=== PATIENT | male | born 1940 | race Caucasian/White ===

== ENCOUNTER 2017-10-09 01:06 | Inpatient (IN) | payer MEDICARE, MEDICAID ==
[~2017-10-09] VITALS: Ht 162.6 cm; Wt 62.5 kg
[2017-10-09] MEDS ORDERED: 0.9% SODIUM CHLORIDE 10 ML SYRINGE IVP PRN (01:15)
[2017-10-09] MEDS ORDERED: SODIUM CHLORIDE 0.9% 1,000 ML IV ONE (01:15)
[2017-10-09] MEDS ORDERED: ASPI81 PO (01:25)
[2017-10-09] MEDS ORDERED: VANC125C5 PO (01:25)
[2017-10-09] MEDS ORDERED: LOSA25TA21 PO (01:25)
[2017-10-09] MEDS ORDERED: MORP5SYR PO (01:25)
[2017-10-09] MEDS ORDERED: DSS100 PO (01:25)
[2017-10-09] MEDS ORDERED: HYDR25TA84 PO (01:25)
[2017-10-09] MEDS ORDERED: FOLI0.8T43 PO (01:25)
[2017-10-09] MEDS ORDERED: PANT40TA25 PO (01:25)
[2017-10-09] MEDS ORDERED: IPRA3AMP4 IH (01:25)
[2017-10-09] MEDS ORDERED: FLUO-191 PO (01:25)
[2017-10-09] MEDS ORDERED: ATOR10TA84 PO (01:25)
[2017-10-09] MEDS ORDERED: SIME80 PO (01:25)
[2017-10-09] MEDS ORDERED: CARV6 PO (01:25)
[2017-10-09] MEDS ORDERED: TRAZ-144 PO (01:25)
[2017-10-09] MEDS ORDERED: INSLAN SQ (01:25)
[2017-10-09] MEDS ORDERED: RANO500T3 PO (01:25)
[2017-10-09 01:47] LABS: BASOPHILS % (AUTO) 0.4 % (0.0-2.0); EOSINOPHILS % (AUTO) 1.5 % (1.0-6.0); HEMATOCRIT 31.6 % (41-53); HEMOGLOBIN 10.6 g/dL (13.5-17.5); LYMPHOCYTES # (AUTO) 0.4 K/uL (1.0-4.8); LYMPHOCYTES % (AUTO) 3.1 % (22.0-44.0); MEAN CORPUSCULAR HEMOGLOBIN 29.8 pg (26.0-34.0); MEAN CORPUSCULAR HGB CONC 33.6 G/dL (31.0-37.0); MEAN CORPUSCULAR VOLUME 89 fL (80-100); MONOCYTES # (AUTO) 0.7 K/uL (0.1-1.0); MONOCYTES % (AUTO) 5.2 % (2.0-9.0); PLATELET COUNT (AUTO) 159 K/uL (150-450); RED BLOOD CELL COUNT(AUTO) 3.56 MIL/uL (4.50-5.90); RED CELL DISTRIBUTION WIDTH 16.3 % (11.5-14.5)
[2017-10-09 01:50] LABS: NEUTROPHILS % (AUTO) 89.8 % (40.0-70.0)
[2017-10-09 01:56] LABS: CALCIUM, TOTAL 7.5 mg/dL (8.8-10.5); CREATININE 5.06 mg/dL (0.60-1.30); POTASSIUM 5.1 mmol/L (3.5-5.1)
[2017-10-09 02:01] LABS: INR 1.1 (0.9-1.1); PROTHROMBIN TIME 11.7 SEC (9.4-11.6)
[2017-10-09 02:02] LABS: ALBUMIN 1.7 g/dL (3.4-5.0); BILIRUBIN,TOTAL 0.7 mg/dL (0.1-1.0); TOTAL PROTEIN, SERUM 4.8 g/dL (6.4-8.2)
[2017-10-09 02:05] LABS: LACTIC ACID 0.6 mmol/L (0.4-2.0)
[2017-10-09] MEDS ORDERED: ACETAMINOPHEN 325 MG TABLET PO PRN ×2 (04:45→12:15)
[2017-10-09] MEDS ORDERED: ONDANSETRON HCL 4 MG/2 ML VIAL IVP PRN (04:45)
[2017-10-09 05:30] LABS: APPEARANCE,URINE CLOUDY (CLEAR); GLUCOSE, URINE (UA) NEGATIVE (NEGATIVE); OCCULT BLOOD,URINE TRACE (NEGATIVE); PROTEIN,URINE SEE CONFIRM (NEGATIVE)
[2017-10-09 05:31] LABS: BILIRUBIN,URINE PRELIM. POSITIVE (NEGATIVE); KETONES,URINE TRACE mg/dL (NEGATIVE); LEUKOCYTE ESTERASE ,URINE TRACE (NEGATIVE); NITRATE,URINE NEGATIVE (NEGATIVE); UROBILINOGEN,URINE 0.2 mg/dL (<=1.0)
[2017-10-09 05:33] LABS: BACTERIA,URINE Few /HPF (None Seen); SQUAMOUS EPITHELIAL CELL,UR Rare /LPF (None Seen); SULFOSALICYLIC ACID,URINE 1+ (Negative)
[2017-10-09 05:50] LABS: C.DIFF GDH ANTIGEN, Stool Positive (Negative)
[2017-10-09 05:52] LABS: C.DIFF TOXINS A&B, Stool Positive (Negative)
[2017-10-09 06:35] VITALS: BP 109/63
[2017-10-09 07:53] VITALS: BP 123/53
[2017-10-09 11:10] VITALS: BP 97/53
[2017-10-09] MEDS ORDERED: ALBUTEROL SULFATE 2.5 MG/0.5 ML NEB SOLUTION NEB PRN (12:15)
[2017-10-09] MEDS ORDERED: PANT20TA12 PO (12:22)
[2017-10-09] MEDS ORDERED: MORP5L PO (12:22)
[2017-10-09] MEDS ORDERED: SODIUM CHLORIDE 0.9% 50 ML ONE (14:40)
[2017-10-09] MEDS: MetroNIDAZOLE 500 MG/NACL 100 ML IV SCH ×2 (14:50→22:30)
[2017-10-09 15:22] VITALS: BP 98/50
[2017-10-09 19:29] VITALS: BP 103/51
[2017-10-09] MEDS: HEPARIN SODIUM,PORCINE 5,000 UNITS/ML VIAL SQ SCH (20:54)
[2017-10-09] MEDS: DOCUSATE SODIUM 100 MG CAPSULE PO SCH (20:55)
[2017-10-09] MEDS: TraMADol HCL 50 MG TABLET PO PRN (22:30)
[2017-10-09 23:48] VITALS: BP 100/49
[2017-10-10 04:27] VITALS: BP 103/68
[2017-10-10] MEDS ORDERED: SODIUM CHLORIDE 0.9% 2,000 ML IV ONE (07:23)
[2017-10-10] MEDS: MetroNIDAZOLE 500 MG/NACL 100 ML IV SCH ×3 (07:33→21:03)
[2017-10-10 07:43] VITALS: BP_SYST 108; BP_SYST 85; BP_DIAS 54; BP_DIAS 84
[2017-10-10] MEDS: DOCUSATE SODIUM 100 MG CAPSULE PO SCH ×2 (07:47→20:36)
[2017-10-10] MEDS: HEPARIN SODIUM,PORCINE 5,000 UNITS/ML VIAL SQ SCH ×2 (08:12→20:27)
[2017-10-10] MEDS: PANTOPRAZOLE SODIUM 40 MG DR TABLET PO SCH (09:37)
[2017-10-10] MEDS: TraMADol HCL 50 MG TABLET PO PRN (09:37)
[2017-10-10 11:21] VITALS: BP 91/53
[2017-10-10] MEDS ORDERED: DEXTROSE 50%-WATER 25 GM/50 ML SYRINGE IVP PRN (13:30)
[2017-10-10] MEDS ORDERED: MANNITOL 25%-12.5 GM/50 ML VIAL IVP ONE (17:01)
[2017-10-10] MEDS: INSULIN LISPRO 100 UNITS/ML SQ PRN ×2 (17:58→20:34)
[2017-10-10 20:00] VITALS: BP 97/61
[2017-10-10] MEDS ORDERED: SODIUM CHLORIDE 0.9% 250 ML IV ONE (20:21)
[2017-10-11 00:29] VITALS: BP 107/59
[2017-10-11 06:10] VITALS: BP 106/61
[2017-10-11] MEDS: MetroNIDAZOLE 500 MG/NACL 100 ML IV SCH ×3 (06:24→21:08)
[2017-10-11 07:10] LABS: BASOPHILS % (AUTO) 0.3 % (0.0-2.0); EOSINOPHILS % (AUTO) 0.8 % (1.0-6.0); HEMATOCRIT 32.9 % (41-53); HEMOGLOBIN 10.8 g/dL (13.5-17.5); LYMPHOCYTES # (AUTO) 0.6 K/uL (1.0-4.8); LYMPHOCYTES % (AUTO) 4.9 % (22.0-44.0); MEAN CORPUSCULAR HEMOGLOBIN 29.7 pg (26.0-34.0); MEAN CORPUSCULAR HGB CONC 32.9 G/dL (31.0-37.0); MEAN CORPUSCULAR VOLUME 90 fL (80-100); MONOCYTES # (AUTO) 0.6 K/uL (0.1-1.0); NEUTROPHILS # (AUTO) 10.5 K/uL (1.8-7.7); PLATELET COUNT (AUTO) 171 K/uL (150-450); RED BLOOD CELL COUNT(AUTO) 3.65 MIL/uL (4.50-5.90); RED CELL DISTRIBUTION WIDTH 16.4 % (11.5-14.5)
[2017-10-11 07:40] LABS: CALCIUM, TOTAL 7.1 mg/dL (8.8-10.5); CREATININE 4.96 mg/dL (0.60-1.30); POTASSIUM 4.2 mmol/L (3.5-5.1)
[2017-10-11 07:53] VITALS: BP 104/59
[2017-10-11] MEDS: PANTOPRAZOLE SODIUM 40 MG DR TABLET PO SCH (08:43)
[2017-10-11] MEDS: HEPARIN SODIUM,PORCINE 5,000 UNITS/ML VIAL SQ SCH ×2 (08:43→20:11)
[2017-10-11] MEDS: DOCUSATE SODIUM 100 MG CAPSULE PO SCH ×2 (09:00→20:26)
[2017-10-11 11:40] VITALS: BP 112/58
[2017-10-11 15:39] VITALS: BP 119/63
[2017-10-11] MEDS: INSULIN LISPRO 100 UNITS/ML SQ PRN ×2 (17:33→20:18)
[2017-10-11 19:28] VITALS: BP 109/64
[2017-10-12 00:05] VITALS: BP 120/81
[2017-10-12 04:29] VITALS: BP 121/69
[2017-10-12] MEDS: INSULIN LISPRO 100 UNITS/ML SQ PRN ×3 (06:04→21:53)
[2017-10-12] MEDS: MetroNIDAZOLE 500 MG/NACL 100 ML IV SCH (06:46)
[2017-10-12 07:53] VITALS: BP 131/72
[2017-10-12] MEDS: HEPARIN SODIUM,PORCINE 5,000 UNITS/ML VIAL SQ SCH ×2 (08:21→21:54)
[2017-10-12] MEDS: PANTOPRAZOLE SODIUM 40 MG DR TABLET PO SCH (08:21)
[2017-10-12] MEDS: DOCUSATE SODIUM 100 MG CAPSULE PO SCH ×2 (09:00→21:00)
[2017-10-12] MEDS ORDERED: EPOETIN ALFA 10,000 UNITS/ML 2 ML VIAL SQ SCH (09:00)
[2017-10-12] MEDS ORDERED: ALBUMIN HUMAN 25%-25GM/100ML 100 ML IV PRN (09:45)
[2017-10-12 11:34] VITALS: BP 120/65
[2017-10-12] MEDS: VANCOMYCIN HCL 125 MG/2.5 ML SOLUTION ORAL.SYG PO SCH ×3 (13:30→23:31)
[2017-10-12] MEDS ORDERED: VANCOMYCIN HCL 125 MG/2.5 ML SOLUTION ORAL.SYG PO SCH (14:00)
[2017-10-12 16:10] VITALS: BP 120/58
[2017-10-12 17:48] LABS: GLUCOMETER DEV NAME(LOC) 5N 1P; GLUCOSE,POINT OF CARE 272 MG/DL (70-110)
[2017-10-12 17:48] LABS: GLUCOMETER DEV NAME(LOC) 5N 1P; GLUCOSE,POINT OF CARE 180 MG/DL (70-110)
[2017-10-12 17:48] LABS: GLUCOMETER DEV NAME(LOC) 5N 1P; GLUCOSE,POINT OF CARE 295 MG/DL (70-110)
[2017-10-12 17:48] LABS: GLUCOMETER DEV NAME(LOC) 5N 1P; GLUCOSE,POINT OF CARE 160 MG/DL (70-110)
[2017-10-12 17:48] LABS: GLUCOMETER DEV NAME(LOC) 5N 1P; GLUCOSE,POINT OF CARE 144 MG/DL (70-110)
[2017-10-12 17:48] LABS: GLUCOMETER DEV NAME(LOC) 5N 1P; GLUCOSE,POINT OF CARE 161 MG/DL (70-110)
[2017-10-12 17:48] LABS: GLUCOMETER DEV NAME(LOC) 5N 1P; GLUCOSE,POINT OF CARE 64 MG/DL (70-110)
[2017-10-12 17:48] LABS: GLUCOMETER DEV NAME(LOC) 5N 1P; GLUCOSE,POINT OF CARE 195 MG/DL (70-110)
[2017-10-12 17:48] LABS: GLUCOMETER DEV NAME(LOC) 5N 1P; GLUCOSE,POINT OF CARE 172 MG/DL (70-110)
[2017-10-12 19:47] VITALS: BP 122/69
[2017-10-12] MEDS: LACTOBAC ACID/BULG/BIFID/THERM TABLET PO SCH (21:51)
[2017-10-13 00:28] LABS: GLUCOMETER DEV NAME(LOC) 5N 1P; GLUCOSE,POINT OF CARE 202 MG/DL (70-110)
[2017-10-13 00:28] LABS: GLUCOMETER DEV NAME(LOC) 5N 1P; GLUCOSE,POINT OF CARE 155 MG/DL (70-110)
[2017-10-13 00:32] VITALS: BP 117/68
[2017-10-13 05:41] VITALS: BP 119/73
[2017-10-13] MEDS: VANCOMYCIN HCL 125 MG/2.5 ML SOLUTION ORAL.SYG PO SCH ×2 (06:01→13:16)
[2017-10-13 06:02] LABS: BASOPHILS % (AUTO) 0.2 % (0.0-2.0); EOSINOPHILS % (AUTO) 0.4 % (1.0-6.0); HEMATOCRIT 34.9 % (41-53); HEMOGLOBIN 11.6 g/dL (13.5-17.5); LYMPHOCYTES # (AUTO) 0.6 K/uL (1.0-4.8); LYMPHOCYTES % (AUTO) 5.2 % (22.0-44.0); MEAN CORPUSCULAR HEMOGLOBIN 29.9 pg (26.0-34.0); MEAN CORPUSCULAR HGB CONC 33.2 G/dL (31.0-37.0); MEAN CORPUSCULAR VOLUME 90 fL (80-100); MONOCYTES # (AUTO) 0.6 K/uL (0.1-1.0); MONOCYTES % (AUTO) 5.4 % (2.0-9.0); NEUTROPHILS # (AUTO) 10.5 K/uL (1.8-7.7); PLATELET COUNT (AUTO) 186 K/uL (150-450); RED BLOOD CELL COUNT(AUTO) 3.88 MIL/uL (4.50-5.90); RED CELL DISTRIBUTION WIDTH 16.6 % (11.5-14.5)
[2017-10-13 06:20] LABS: CALCIUM, TOTAL 7.3 mg/dL (8.8-10.5); CREATININE 6.03 mg/dL (0.60-1.30); POTASSIUM 3.9 mmol/L (3.5-5.1)
[2017-10-13 06:38] LABS: NEUTROPHILS % (AUTO) 88.8 % (40.0-70.0)
[2017-10-13 07:07] VITALS: BP 126/67
[2017-10-13] MEDS ORDERED: SODIUM CHLORIDE 0.9% 1,000 ML IV ONE (08:25)
[2017-10-13 11:22] VITALS: BP 109/62
[2017-10-13] MEDS ORDERED: HEPA500041 SQ (12:04)
[2017-10-13] MEDS ORDERED: LACT1POW8 MC (12:08)
[2017-10-13] MEDS ORDERED: LACT0.5T PO (12:09)
[2017-10-13] MEDS: HEPARIN SODIUM,PORCINE 5,000 UNITS/ML VIAL SQ SCH (13:16)
[2017-10-13] MEDS: LACTOBAC ACID/BULG/BIFID/THERM TABLET PO SCH (13:16)
[2017-10-13] MEDS: DOCUSATE SODIUM 100 MG CAPSULE PO SCH (13:16)
[2017-10-13] MEDS: PANTOPRAZOLE SODIUM 40 MG DR TABLET PO SCH (13:16)
[2017-10-13] MEDS ORDERED: ACET-2247 PO (13:35)
[2017-10-13] MEDS ORDERED: AUD NEB (13:36)
[2017-10-13] MEDS ORDERED: INSU100V SQ (13:43)
[2017-10-14 00:42] LABS: GLUCOMETER DEV NAME(LOC) 5S 2Q; GLUCOSE,POINT OF CARE 104 MG/DL (70-110)
[2017-10-14 00:42] LABS: GLUCOMETER DEV NAME(LOC) 5S 2Q; GLUCOSE,POINT OF CARE 124 MG/DL (70-110)
== END 2017-10-13 14:25 | DRG 871 ==
LOC: EMS 01:10 → 5S 04:38
PROVIDERS: ADMIT Internal Medicine; ATTEND Internal Medicine
PROC: 5A1D70Z Performance of Urinary Filtration, Intermittent, Less than 6 Hours Per Day (ICD-10-PCS; principal; 2017-10-10)
PROC: 5A1D70Z Performance of Urinary Filtration, Intermittent, Less than 6 Hours Per Day (ICD-10-PCS; 2017-10-13)
DX: A41.4 Sepsis due to anaerobes (principal); N18.6 End stage renal disease; E43 Unspecified severe protein-calorie malnutrition; G93.41 Metabolic encephalopathy; A04.72 Enterocolitis due to Clostridium difficile, not specified as recurrent; R64 Cachexia; N17.9 Acute kidney failure, unspecified; I12.0 Hypertensive chronic kidney disease with stage 5 chronic kidney disease or end stage renal disease; I95.3 Hypotension of hemodialysis; E11.22 Type 2 diabetes mellitus with diabetic chronic kidney disease; I49.5 Sick sinus syndrome; F03.90 Unspecified dementia, unspecified severity, without behavioral disturbance, psychotic disturbance, mood disturbance, and anxiety; K21.9 Gastro-esophageal reflux disease without esophagitis; I25.10 Atherosclerotic heart disease of native coronary artery without angina pectoris; F41.9 Anxiety disorder, unspecified; E78.00 Pure hypercholesterolemia, unspecified; F32.9 Major depressive disorder, single episode, unspecified; D63.1 Anemia in chronic kidney disease; E78.5 Hyperlipidemia, unspecified; I25.5 Ischemic cardiomyopathy; R62.7 Adult failure to thrive; Z66 Do not resuscitate; Z95.1 Presence of aortocoronary bypass graft; Z95.0 Presence of cardiac pacemaker; Z99.2 Dependence on renal dialysis; Z79.84 Long term (current) use of oral hypoglycemic drugs; Z79.899 Other long term (current) drug therapy; Z79.82 Long term (current) use of aspirin
CPT/HCPCS: 51702; 70450; 83605; 87040; 87081; 87324; 87340; 87449; 90935; 92610; 93005; 93306; 96360; 96361; 99285; J0885; J1644; J2150; J3490; J7030; J7050

== ENCOUNTER 2017-11-03 22:55 | Inpatient (IN) | payer MEDICARE, MEDICAID ==
[~2017-11-03] VITALS: Ht 167.6 cm; Wt 75.0 kg
[~2017-11-03 22:55] MED LIST: ACET-2247 PO; ASPI81 PO; ATOR10TA84 PO; AUD NEB; DSS100 PO; HEPA500041 SQ; INSU100V SQ; IPRA3AMP4 IH; LACT0.5T PO; MORP5L PO; PANT20TA12 PO; VANC125C5 PO
[2017-11-03] MEDS ORDERED: FOLI0.8T22 PO (23:10)
[2017-11-03] MEDS ORDERED: NUTR237L33 PO (23:10)
[2017-11-03] MEDS ORDERED: HEPA500041 SQ (23:10)
[2017-11-03] MEDS ORDERED: MELA3TAB66 PO (23:10)
[2017-11-03] MEDS ORDERED: LORA1TAB3 PO (23:10)
[2017-11-03 23:32] LABS: BASOPHILS % (AUTO) 0.6 % (0.0-2.0); EOSINOPHILS % (AUTO) 0.5 % (1.0-6.0); HEMATOCRIT 25.9 % (41-53); HEMOGLOBIN 8.7 g/dL (13.5-17.5); LYMPHOCYTES # (AUTO) 0.4 K/uL (1.0-4.8); LYMPHOCYTES % (AUTO) 5.8 % (22.0-44.0); MEAN CORPUSCULAR HEMOGLOBIN 32.4 pg (26.0-34.0); MEAN CORPUSCULAR HGB CONC 33.7 G/dL (31.0-37.0); MEAN CORPUSCULAR VOLUME 96 fL (80-100); MONOCYTES # (AUTO) 0.6 K/uL (0.1-1.0); MONOCYTES % (AUTO) 8.2 % (2.0-9.0); NEUTROPHILS % (AUTO) 84.9 % (40.0-70.0); PLATELET COUNT (AUTO) 120 K/uL (150-450); RED BLOOD CELL COUNT(AUTO) 2.69 MIL/uL (4.50-5.90); RED CELL DISTRIBUTION WIDTH 19.1 % (11.5-14.5)
[2017-11-03 23:42] LABS: ANION GAP 3 mmol/L (8-16); CALCIUM, TOTAL 7.7 mg/dL (8.8-10.5); CARBON DIOXIDE 33 mmol/L (22-29); CHLORIDE 101 mmol/L (98-107); CREATININE 2.95 mg/dL (0.60-1.30); GLOMERULAR FILTR. RATE CALC 21 mL/min (>60); GLUCOSE,RANDOM 226 mg/dL (70-110); POTASSIUM 3.6 mmol/L (3.5-5.1); SODIUM SERUM 137 mmol/L (136-145); UREA NITROGEN, BLOOD 33 mg/dL (7-18)
[2017-11-03] MEDS ORDERED: ACETAMINOPHEN 325 MG TABLET PO ONE (23:45)
[2017-11-03 23:46] LABS: INR 1.1 (0.9-1.1); PROTHROMBIN TIME 11.1 SEC (9.4-11.6)
[2017-11-03 23:48] LABS: B-TYPE NATRIURETIC PEPTIDE 3060 pg/mL (0-100)
[2017-11-03 23:49] LABS: ALANINE AMINOTRANSFERASE 18 U/L (12-78); ALBUMIN 2.1 g/dL (3.4-5.0); ALKALINE PHOSPHATASE 246 U/L (46-116); ASPARTATE AMINOTRANSFERASE 15 U/L (15-37); BILIRUBIN,TOTAL 0.5 mg/dL (0.1-1.0); CREATINE KINASE, TOTAL 31 U/L (39-308); TOTAL PROTEIN, SERUM 5.6 g/dL (6.4-8.2)
[2017-11-04] MEDS ORDERED: LORazepam 1 MG TABLET PO ONE (00:30)
[2017-11-04] MEDS ORDERED: NITROGLYCERIN 2% (1 GM=INCH) PACKET TP ONE (00:30)
[2017-11-04] MEDS ORDERED: FUROSEMIDE 40 MG/4 ML VIAL IVP ONE (01:00)
[2017-11-04] MEDS ORDERED: ONDANSETRON HCL 4 MG/2 ML VIAL IVP PRN ×2 (01:30→02:00)
[2017-11-04] MEDS ORDERED: ACETAMINOPHEN 325 MG TABLET PO PRN (01:30)
[2017-11-04] MEDS ORDERED: 0.9% SODIUM CHLORIDE 10 ML SYRINGE IVP PRN (01:30)
[2017-11-04] MEDS ORDERED: MAGNESIUM HYDROXIDE SUSPENSION 30 ML UDCUP PO PRN (02:00)
[2017-11-04] MEDS ORDERED: MORPHINE SULFATE 4 MG/ML SYRINGE IVP PRN (02:00)
[2017-11-04] MEDS ORDERED: DEXTROSE 50%-WATER 25 GM/50 ML SYRINGE IVP PRN (02:00)
[2017-11-04] MEDS ORDERED: MAGNESIUM SULFATE 4 GM/WATER 100 ML IV PRN (02:00)
[2017-11-04] MEDS ORDERED: MAGNESIUM OXIDE 400 MG TABLET PO PRN (02:00)
[2017-11-04] MEDS ORDERED: POTASSIUM CHLORIDE 20 MEQ ER TABLET PO PRN (02:00)
[2017-11-04] MEDS ORDERED: POTASSIUM CHL 10 MEQ/WATER 50 ML IV PRN (02:00)
[2017-11-04] MEDS ORDERED: ALBUTEROL SULFATE 2.5 MG/0.5 ML NEB SOLUTION NEB PRN (02:00)
[2017-11-04] MEDS ORDERED: MAGNESIUM SULFATE 2 GM/WATER 50 ML IV PRN (02:00)
[2017-11-04] MEDS ORDERED: BISACODYL 10 MG RECTAL RECTAL SUPPOSITORY PR PRN (02:00)
[2017-11-04] MEDS ORDERED: IPRATROPIUM BROMIDE 0.5 MG/2.5 ML NEB SOLUTION NEB PRN (02:00)
[2017-11-04] MEDS ORDERED: LORazepam 2 MG/ML VIAL IVP ONE (02:45)
[2017-11-04 03:00] LABS: BILIRUBIN,URINE NEGATIVE (NEGATIVE); GLUCOSE, URINE (UA) 100 mg/dL (NEGATIVE); KETONES,URINE NEGATIVE (NEGATIVE); LEUKOCYTE ESTERASE ,URINE TRACE (NEGATIVE); NITRATE,URINE NEGATIVE (NEGATIVE); OCCULT BLOOD,URINE LARGE (NEGATIVE); PH,URINE 7.5 (5.0-8.0); PROTEIN,URINE POS 1+ (NEGATIVE); UROBILINOGEN,URINE 0.2 mg/dL (<=1.0)
[2017-11-04 03:01] LABS: APPEARANCE,URINE HAZY (CLEAR)
[2017-11-04 03:33] LABS: BACTERIA,URINE Rare /HPF (None Seen); SQUAMOUS EPITHELIAL CELL,UR Rare /LPF (None Seen)
[2017-11-04] MEDS: NITROGLYCERIN 2% (1 GM=INCH) PACKET TP SCH ×3 (05:15→18:00)
[2017-11-04] MEDS ORDERED: DOCUSATE SODIUM 100 MG CAPSULE PO SCH (09:00)
[2017-11-04 10:30] VITALS: BP 140/71
[2017-11-04] MEDS: INSULIN LISPRO 100 UNITS/ML SQ PRN ×2 (12:18→18:06)
[2017-11-04] MEDS: MetroNIDAZOLE 500 MG TABLET PO SCH ×3 (16:00→20:42)
[2017-11-04] MEDS: ACETAMINOPHEN 325 MG TABLET PO PRN (16:59)
[2017-11-04 17:43] LABS: OSMOLALITY,URINE 328 mOS/kg (50-1200)
[2017-11-04 17:48] LABS: CREATININE,URINE RANDOM 67.7 mg/dL (30.0-125.0); SODIUM,URINE RANDOM 39 mmol/l (20-110)
[2017-11-04] MEDS: ASPIRIN 81 MG CHEWABLE TABLET PO SCH (17:56)
[2017-11-04] MEDS: VITAMIN B COMP/VIT C/FOLIC ACID CAPSULE PO SCH (17:56)
[2017-11-04] MEDS: CARVEDILOL 6.25 MG TABLET PO SCH ×2 (17:56→20:42)
[2017-11-04] MEDS: LOSARTAN POTASSIUM 25 MG TABLET PO SCH (17:56)
[2017-11-04] MEDS: RANOLAZINE 500 MG SR TABLET PO SCH ×2 (17:56→20:41)
[2017-11-04 18:01] LABS: APPEARANCE,URINE CLOUDY (CLEAR); BILIRUBIN,URINE NEGATIVE (NEGATIVE); GLUCOSE, URINE (UA) 250 mg/dL (NEGATIVE); KETONES,URINE NEGATIVE (NEGATIVE); LEUKOCYTE ESTERASE ,URINE MODERATE (NEGATIVE); NITRATE,URINE NEGATIVE (NEGATIVE); OCCULT BLOOD,URINE MODERATE (NEGATIVE); PH,URINE 6.5 (5.0-8.0); PROTEIN,URINE SEE CONFIRM (NEGATIVE); UROBILINOGEN,URINE 0.2 mg/dL (<=1.0)
[2017-11-04 18:45] LABS: SULFOSALICYLIC ACID,URINE 4+ (Negative)
[2017-11-04 18:46] LABS: BACTERIA,URINE Few /HPF (None Seen); RBC,URINE 26-50 /HPF (0-2); WBC,URINE 51-100 /HPF (0-5)
[2017-11-04 18:47] LABS: CALCIUM OXALATE CRYSTALS,UR Rare /LPF (None Seen); SQUAMOUS EPITHELIAL CELL,UR Few /LPF (None Seen)
[2017-11-04 18:48] LABS: AMORPHOUS SEDIMENT,UR Rare /LPF (None Seen)
[2017-11-04 19:22] VITALS: BP 151/77
[2017-11-04] MEDS: ATORVASTATIN CALCIUM 10 MG TABLET PO SCH (20:41)
[2017-11-04] MEDS: MELATONIN 3 MG TABLET PO SCH (20:42)
[2017-11-04] MEDS: OxyCODONE HCL/ACETAMINOPHEN 5-325 MG TABLET PO PRN (21:24)
[2017-11-04 23:22] VITALS: BP 131/72
[2017-11-05] MEDS: NITROGLYCERIN 2% (1 GM=INCH) PACKET TP SCH ×5 (00:27→23:55)
[2017-11-05] MEDS: ACETAMINOPHEN 325 MG TABLET PO PRN ×2 (03:23→16:38)
[2017-11-05 04:25] VITALS: BP 132/73
[2017-11-05 06:51] LABS: BASOPHILS % (AUTO) 1.1 % (0.0-2.0); EOSINOPHILS % (AUTO) 2.8 % (1.0-6.0); HEMATOCRIT 26.2 % (41-53); HEMOGLOBIN 9.1 g/dL (13.5-17.5); LYMPHOCYTES # (AUTO) 0.4 K/uL (1.0-4.8); LYMPHOCYTES % (AUTO) 9.9 % (22.0-44.0); MEAN CORPUSCULAR HEMOGLOBIN 33.5 pg (26.0-34.0); MEAN CORPUSCULAR HGB CONC 34.7 G/dL (31.0-37.0); MEAN CORPUSCULAR VOLUME 97 fL (80-100); MONOCYTES # (AUTO) 0.5 K/uL (0.1-1.0); MONOCYTES % (AUTO) 10.7 % (2.0-9.0); NEUTROPHILS # (AUTO) 3.2 K/uL (1.8-7.7); NEUTROPHILS % (AUTO) 75.5 % (40.0-70.0); PLATELET COUNT (AUTO) 109 K/uL (150-450); RED BLOOD CELL COUNT(AUTO) 2.72 MIL/uL (4.50-5.90)
[2017-11-05 07:19] LABS: BILIRUBIN,TOTAL 0.7 mg/dL (0.1-1.0); CALCIUM, TOTAL 7.6 mg/dL (8.8-10.5); CREATININE 2.14 mg/dL (0.60-1.30); MAGNESIUM 1.4 mg/dL (1.80-2.40); PHOSPHORUS 3.2 mg/dL (2.5-4.9); POTASSIUM 3.7 mmol/L (3.5-5.1); TOTAL PROTEIN, SERUM 5.5 g/dL (6.4-8.2)
[2017-11-05 07:28] LABS: GLUCOMETER DEV NAME(LOC) 5N 1P; GLUCOSE,POINT OF CARE 183 MG/DL (70-110)
[2017-11-05 07:28] LABS: GLUCOMETER DEV NAME(LOC) 5N 1P; GLUCOSE,POINT OF CARE 117 MG/DL (70-110)
[2017-11-05 07:28] LABS: GLUCOMETER DEV NAME(LOC) 5N 2S; GLUCOSE,POINT OF CARE 78 MG/DL (70-110)
[2017-11-05 07:28] LABS: GLUCOMETER DEV NAME(LOC) 5N 2S; GLUCOSE,POINT OF CARE 113 MG/DL (70-110)
[2017-11-05 08:18] VITALS: BP 132/91
[2017-11-05] MEDS: RANOLAZINE 500 MG SR TABLET PO SCH ×2 (08:56→20:20)
[2017-11-05] MEDS: LOSARTAN POTASSIUM 25 MG TABLET PO SCH (08:57)
[2017-11-05] MEDS: CARVEDILOL 6.25 MG TABLET PO SCH ×2 (08:57→20:20)
[2017-11-05] MEDS: ASPIRIN 81 MG CHEWABLE TABLET PO SCH (08:57)
[2017-11-05] MEDS: MetroNIDAZOLE 500 MG TABLET PO SCH ×3 (08:57→20:20)
[2017-11-05] MEDS: VITAMIN B COMP/VIT C/FOLIC ACID CAPSULE PO SCH (08:57)
[2017-11-05 09:52] LABS: ABG A-A DIFF O2 76.4 mmHg (10-20.0); ABG BASE EXCESS 3.6 mmol/L (-2.0-3.0); ABG HCO3 27.3 mmol/L (22.0-26.0); ABG METHEMOGLOBIN 0.1 % (0.0-1.5); ABG OXYGEN CONTENT 13.4 mL/dL (15.0-23.0); ABG OXYGEN SATURATION 94.7 % (95.0-98.0); ABG OXYHEMOGLOBIN 93.7 % (94.0-100.0); ABG PCO2 42 mmHg (35-45); ABG PH 7.438 (7.35-7.450); ABG TOTAL HEMOGLOBIN 10.1 G/dL (12.0-18.0); PO2, ARTERIAL BG 73.7 mmHg (75.0-83.0); SOURCE, BLOOD GAS ARTERIAL; TEMPERATURE, FAHRENHEIT, BG 98.6 FAHREN (96.0-98.6)
[2017-11-05 09:54] LABS: O2 DEVICE,BLOOD GAS CANNULA (ROOM AIR); SITE, BLOOD GAS RT RADIAL
[2017-11-05] MEDS ORDERED: MAGNESIUM SULFATE 2 GM/WATER 50 ML IV ONE ×3 (11:15→17:00)
[2017-11-05] MEDS: INSULIN LISPRO 100 UNITS/ML SQ PRN ×3 (12:33→20:25)
[2017-11-05 12:35] VITALS: BP 121/61
[2017-11-05] MEDS ORDERED: SODIUM CHLORIDE 0.9% 250 ML IV ONE (12:59)
[2017-11-05] MEDS: ALPRAZolam 0.25 MG TABLET PO PRN (16:37)
[2017-11-05 16:45] VITALS: BP_SYST 129; BP_DIAS 59; BP_DIAS 62
[2017-11-05 19:26] VITALS: BP 124/73
[2017-11-05] MEDS: MELATONIN 3 MG TABLET PO SCH (20:20)
[2017-11-05] MEDS: ATORVASTATIN CALCIUM 10 MG TABLET PO SCH (20:20)
[2017-11-05] MEDS: ZOLPIDEM TARTRATE 5 MG TABLET PO PRN (20:29)
[2017-11-05 23:32] VITALS: BP 109/62
[2017-11-05] MEDS: OxyCODONE HCL/ACETAMINOPHEN 5-325 MG TABLET PO PRN (23:55)
[2017-11-06 03:47] VITALS: BP 119/71
[2017-11-06] MEDS: NITROGLYCERIN 2% (1 GM=INCH) PACKET TP SCH ×3 (06:08→17:59)
[2017-11-06] MEDS: INSULIN LISPRO 100 UNITS/ML SQ PRN ×4 (06:13→20:24)
[2017-11-06 07:20] VITALS: BP 122/68
[2017-11-06] MEDS: RANOLAZINE 500 MG SR TABLET PO SCH ×2 (09:08→20:16)
[2017-11-06] MEDS: EPOETIN ALFA 10,000 UNITS/ML 2 ML VIAL SQ SCH (09:08)
[2017-11-06] MEDS: LOSARTAN POTASSIUM 25 MG TABLET PO SCH (09:09)
[2017-11-06] MEDS: VITAMIN B COMP/VIT C/FOLIC ACID CAPSULE PO SCH (09:09)
[2017-11-06] MEDS: ASPIRIN 81 MG CHEWABLE TABLET PO SCH (09:09)
[2017-11-06] MEDS: CARVEDILOL 6.25 MG TABLET PO SCH ×2 (09:09→20:16)
[2017-11-06] MEDS: MetroNIDAZOLE 500 MG TABLET PO SCH ×3 (09:09→20:15)
[2017-11-06 10:18] LABS: GLUCOMETER DEV NAME(LOC) 5N 1P; GLUCOSE,POINT OF CARE 328 MG/DL (70-110)
[2017-11-06 10:19] LABS: GLUCOMETER DEV NAME(LOC) 5N 1P; GLUCOSE,POINT OF CARE 152 MG/DL (70-110)
[2017-11-06 11:04] VITALS: BP 109/72
[2017-11-06 11:59] LABS: GLUCOMETER DEV NAME(LOC) 5N 2S; GLUCOSE,POINT OF CARE 208 MG/DL (70-110)
[2017-11-06 11:59] LABS: GLUCOMETER DEV NAME(LOC) 5N 2S; GLUCOSE,POINT OF CARE 195 MG/DL (70-110)
[2017-11-06 15:34] VITALS: BP 153/52
[2017-11-06 19:57] VITALS: BP 136/68
[2017-11-06] MEDS: ZOLPIDEM TARTRATE 5 MG TABLET PO PRN (20:15)
[2017-11-06] MEDS: ATORVASTATIN CALCIUM 10 MG TABLET PO SCH (20:16)
[2017-11-06] MEDS: MELATONIN 3 MG TABLET PO SCH (20:16)
[2017-11-06] MEDS: OxyCODONE HCL/ACETAMINOPHEN 5-325 MG TABLET PO PRN (22:27)
[2017-11-07] VITALS (7 sets, daily range): BP systolic 109–140; BP diastolic 67–91
[2017-11-07] MEDS: NITROGLYCERIN 2% (1 GM=INCH) PACKET TP SCH ×5 (00:08→23:59)
[2017-11-07] MEDS: ALPRAZolam 0.25 MG TABLET PO PRN ×2 (00:59→21:30)
[2017-11-07 02:44] LABS: GLUCOMETER DEV NAME(LOC) 5N 1P; GLUCOSE,POINT OF CARE 234 MG/DL (70-110)
[2017-11-07 02:44] LABS: GLUCOMETER DEV NAME(LOC) 5N 1P; GLUCOSE,POINT OF CARE 228 MG/DL (70-110)
[2017-11-07 02:44] LABS: GLUCOMETER DEV NAME(LOC) 5N 1P; GLUCOSE,POINT OF CARE 234 MG/DL (70-110)
[2017-11-07] MEDS: MetroNIDAZOLE 500 MG TABLET PO SCH ×3 (08:41→20:28)
[2017-11-07] MEDS: CARVEDILOL 6.25 MG TABLET PO SCH ×2 (08:41→20:28)
[2017-11-07] MEDS: LOSARTAN POTASSIUM 25 MG TABLET PO SCH (08:41)
[2017-11-07] MEDS: ASPIRIN 81 MG CHEWABLE TABLET PO SCH (08:41)
[2017-11-07] MEDS: RANOLAZINE 500 MG SR TABLET PO SCH ×2 (08:42→20:27)
[2017-11-07] MEDS: VITAMIN B COMP/VIT C/FOLIC ACID CAPSULE PO SCH (08:42)
[2017-11-07] MEDS: ACETAMINOPHEN 325 MG TABLET PO PRN ×2 (08:45→15:16)
[2017-11-07] MEDS: INSULIN LISPRO 100 UNITS/ML SQ PRN ×3 (12:33→20:50)
[2017-11-07 17:39] LABS: GLUCOMETER DEV NAME(LOC) 5N 2S; GLUCOSE,POINT OF CARE 140 MG/DL (70-110)
[2017-11-07 18:23] LABS: GLUCOMETER DEV NAME(LOC) 5N 1P; GLUCOSE,POINT OF CARE 291 MG/DL (70-110)
[2017-11-07 18:23] LABS: GLUCOMETER DEV NAME(LOC) 5N 1P; GLUCOSE,POINT OF CARE 264 MG/DL (70-110)
[2017-11-07] MEDS ORDERED: 0.9% SODIUM CHLORIDE 5 ML NEB SOLUTION NEB ONE (20:12)
[2017-11-07] MEDS: ATORVASTATIN CALCIUM 10 MG TABLET PO SCH (20:27)
[2017-11-07] MEDS: MELATONIN 3 MG TABLET PO SCH (20:27)
[2017-11-07 21:28] LABS: GLUCOMETER DEV NAME(LOC) 6N 1E; GLUCOSE,POINT OF CARE 313 MG/DL (70-110)
[2017-11-08] MEDS: OxyCODONE HCL/ACETAMINOPHEN 5-325 MG TABLET PO PRN ×2 (02:05→14:57)
[2017-11-08] MEDS: NITROGLYCERIN 2% (1 GM=INCH) PACKET TP SCH ×4 (05:47→23:55)
[2017-11-08] MEDS: INSULIN LISPRO 100 UNITS/ML SQ PRN ×3 (05:54→20:35)
[2017-11-08 06:29] LABS: GLUCOMETER DEV NAME(LOC) 6N 2D; GLUCOSE,POINT OF CARE 160 MG/DL (70-110)
[2017-11-08 07:35] VITALS: BP 112/71
[2017-11-08] MEDS: MetroNIDAZOLE 500 MG TABLET PO SCH ×3 (07:50→20:16)
[2017-11-08] MEDS: CARVEDILOL 6.25 MG TABLET PO SCH ×2 (07:50→20:16)
[2017-11-08] MEDS: VITAMIN B COMP/VIT C/FOLIC ACID CAPSULE PO SCH (07:50)
[2017-11-08] MEDS: RANOLAZINE 500 MG SR TABLET PO SCH ×2 (07:51→20:20)
[2017-11-08] MEDS: ALPRAZolam 0.25 MG TABLET PO PRN (07:51)
[2017-11-08] MEDS: ASPIRIN 81 MG CHEWABLE TABLET PO SCH (07:51)
[2017-11-08] MEDS: LOSARTAN POTASSIUM 25 MG TABLET PO SCH (07:51)
[2017-11-08 11:22] LABS: GLUCOMETER DEV NAME(LOC) 6N 2D; GLUCOSE,POINT OF CARE 218 MG/DL (70-110)
[2017-11-08 12:30] VITALS: BP 141/75
[2017-11-08 16:07] VITALS: BP 148/84
[2017-11-08 17:23] LABS: GLUCOMETER DEV NAME(LOC) 6N 1E; GLUCOSE,POINT OF CARE 117 MG/DL (70-110)
[2017-11-08 19:55] VITALS: BP 147/84
[2017-11-08] MEDS ORDERED: HEPA500018 SQ (20:00)
[2017-11-08] MEDS: ATORVASTATIN CALCIUM 10 MG TABLET PO SCH (20:16)
[2017-11-08] MEDS: MELATONIN 3 MG TABLET PO SCH (20:20)
[2017-11-08 22:23] LABS: GLUCOMETER DEV NAME(LOC) 6N 2D; GLUCOSE,POINT OF CARE 176 MG/DL (70-110)
[2017-11-08 23:09] VITALS: BP 140/92
[2017-11-09 05:16] VITALS: BP 138/80
[2017-11-09] MEDS: NITROGLYCERIN 2% (1 GM=INCH) PACKET TP SCH ×3 (05:42→18:29)
[2017-11-09 06:34] LABS: GLUCOMETER DEV NAME(LOC) 6N 1E; GLUCOSE,POINT OF CARE 138 MG/DL (70-110)
[2017-11-09 08:44] VITALS: BP 137/84
[2017-11-09] MEDS: ASPIRIN 81 MG CHEWABLE TABLET PO SCH (08:51)
[2017-11-09] MEDS: MetroNIDAZOLE 500 MG TABLET PO SCH ×2 (08:51→18:28)
[2017-11-09] MEDS: RANOLAZINE 500 MG SR TABLET PO SCH (08:51)
[2017-11-09] MEDS: EPOETIN ALFA 10,000 UNITS/ML 2 ML VIAL SQ SCH (08:51)
[2017-11-09] MEDS: LOSARTAN POTASSIUM 25 MG TABLET PO SCH (08:51)
[2017-11-09] MEDS: VITAMIN B COMP/VIT C/FOLIC ACID CAPSULE PO SCH (08:51)
[2017-11-09] MEDS: CARVEDILOL 6.25 MG TABLET PO SCH (08:53)
[2017-11-09] MEDS: OxyCODONE HCL/ACETAMINOPHEN 5-325 MG TABLET PO PRN (11:25)
[2017-11-09 12:06] VITALS: BP 131/81
[2017-11-09 13:14] LABS: GLUCOMETER DEV NAME(LOC) 6N 2D; GLUCOSE,POINT OF CARE 198 MG/DL (70-110)
[2017-11-09 14:25] LABS: CALCIUM, TOTAL 7.4 mg/dL (8.8-10.5); CREATININE 2.49 mg/dL (0.60-1.30); POTASSIUM 4.2 mmol/L (3.5-5.1)
[2017-11-09 16:55] VITALS: BP 130/73
[2017-11-09 17:51] LABS: GLUCOMETER DEV NAME(LOC) 6N 1E; GLUCOSE,POINT OF CARE 294 MG/DL (70-110)
[2017-11-09] MEDS ORDERED: METR500 PO (18:13)
[2017-11-09] MEDS: INSULIN LISPRO 100 UNITS/ML SQ PRN (18:34)
== END 2017-11-09 18:38 | DRG 291 ==
LOC: EMS 22:56 → 5N 11-04 05:32 → 6N 11-07 17:20
PROVIDERS: ADMIT Internal Medicine; ATTEND Internal Medicine
PROC: 5A1D70Z Performance of Urinary Filtration, Intermittent, Less than 6 Hours Per Day (ICD-10-PCS; principal; 2017-11-04)
PROC: 5A1D70Z Performance of Urinary Filtration, Intermittent, Less than 6 Hours Per Day (ICD-10-PCS; 2017-11-06)
PROC: 5A1D70Z Performance of Urinary Filtration, Intermittent, Less than 6 Hours Per Day (ICD-10-PCS; 2017-11-09)
DX: I13.2 Hypertensive heart and chronic kidney disease with heart failure and with stage 5 chronic kidney disease, or end stage renal disease (principal); N18.6 End stage renal disease; I50.33 Acute on chronic diastolic (congestive) heart failure; A04.72 Enterocolitis due to Clostridium difficile, not specified as recurrent; E46 Unspecified protein-calorie malnutrition; N39.0 Urinary tract infection, site not specified; D69.6 Thrombocytopenia, unspecified; E21.3 Hyperparathyroidism, unspecified; E11.65 Type 2 diabetes mellitus with hyperglycemia; M19.90 Unspecified osteoarthritis, unspecified site; D63.1 Anemia in chronic kidney disease; F32.9 Major depressive disorder, single episode, unspecified; F41.9 Anxiety disorder, unspecified; E11.22 Type 2 diabetes mellitus with diabetic chronic kidney disease; K21.9 Gastro-esophageal reflux disease without esophagitis; E78.5 Hyperlipidemia, unspecified; E78.00 Pure hypercholesterolemia, unspecified; F03.90 Unspecified dementia, unspecified severity, without behavioral disturbance, psychotic disturbance, mood disturbance, and anxiety; H40.9 Unspecified glaucoma; I25.10 Atherosclerotic heart disease of native coronary artery without angina pectoris; Z95.0 Presence of cardiac pacemaker; Z95.1 Presence of aortocoronary bypass graft; Z99.2 Dependence on renal dialysis; Z78.9 Other specified health status; Z79.82 Long term (current) use of aspirin; Z79.4 Long term (current) use of insulin; Z79.899 Other long term (current) drug therapy; Z85.46 Personal history of malignant neoplasm of prostate; Z68.26 Body mass index [BMI] 26.0-26.9, adult
CPT/HCPCS: 51702; 82570; 82805; 83735; 83935; 84100; 84300; 87081; 87086; 87340; 92610; 93005; 94640; 96374; 99285; J0885; J1940; J2060; J2270; J3475; J7050